=== PATIENT | female | born 1980 | race Caucasian/White ===

== ENCOUNTER 2018-08-11 00:16 | Emergency (ER) | payer SELFPAY ==
[2018-08-11 00:36] VITALS: BP 152/96; PULSE 80; RESP 16; TEMP 98.2; O2SAT 99
--- NOTE | 2018-08-11 03:00 | ED PDOC ---
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 Patient reports of developing left sided headache at 9:30 PM that spontaneously resolved. Patient is concerned because headache was associated with numbness to the left side of the head. Patient denies vision changes, extremity weakness and numbness, gait instability, nausea and vomiting. PMD: Gabi Ash Past Medical History Reviewed: Historical Data, Nursing Documentation, Vital Signs Vital Signs: Last Vital Signs Temp 98.2 F 08/11/18 00:34 Pulse 80 08/11/18 00:34 Resp 16 08/11/18 00:34 BP 152/96 H 08/11/18 00:34 Pulse Ox 99 08/11/18 00:34 Primary Care Provider: FAMILY PROVIDER,NO - Medical History PMH: No Chronic Diseases - Surgical History Surgical History: No Surg Hx - Family History Family History: States: Unknown Family Hx - Home Medications Home Medications: Ambulatory Orders Medication Instructions Recorded Docusate [Colace] 100 mg PO BID PRN #60 cap 07/29/15 Ferrous Sulfate [Feosol] 325 mg PO DAILY #30 tab 07/29/15 Ibuprofen [Motrin] 600 mg PO Q6H PRN #40 tab 07/29/15 Aspirin/Acetaminophen/Caffeine 1 each PO Q8 PRN #30 tablet 08/11/18 [Excedrin Migraine Geltab] - Allergies Allergies/Adverse Reactions: Allergies Allergy/AdvReac Type Severity Reaction Status Date / Time No Known Allergies Allergy Verified 08/11/18 00:34 Review of Systems ROS Statement: Except As Marked, All Systems Reviewed And Found Negative Eyes: Negative for: Vision Change Gastrointestinal: Negative for: Nausea, Vomiting Neurological: Positive for: Numbness, Headache. Negative for: Weakness, Incoordination Physical Exam - Reviewed Nursing Documentation Reviewed: Yes Vital Signs Reviewed: Yes - Physical Exam Appears: Positive for: No Acute Distress Head Exam: Positive for: ATRAUMATIC, NORMOCEPHALIC Skin: Positive for: Normal Color, Warm, Dry Eye Exam: Positive for: Normal appearance, EOMI, PERRL ENT: Positive for: Normal ENT Inspection Neck: Positive for: Normal, Painless ROM, Supple Cardiovascular/Chest: Positive for: Regular Rate, Rhythm. Negative for: Murmur Respiratory: Positive for: Normal Breath Sounds. Negative for: Respiratory Distress Gastrointestinal/Abdominal: Positive for: Normal Exam, Soft. Negative for: Tenderness Back: Positive for: Normal Inspection. Negative for: L CVA Tenderness, R CVA Tenderness, Vertebral Tenderness Extremity: Positive for: Normal ROM. Negative for: Deformity Neurological/Psych: Positive for: Awake, Alert, Oriented (x3), Gait (steady), Cerebellar Tests (normal), lamination operator II-XII (intact). Negative for: Motor/Sensory Deficits - ECG O2 Sat by Pulse Oximetry: 99 Medical Decision Making Medical Decision Making: Time: 112 A/P: 37 y/o female presenting with possibly atypical migraine. -- Will obtain Head CT to rule out acute intracranial process. -- Patient currently denies headaches. Thus, no medications needed. -- Patient likely seeking reassurance. -- CT Head w/o Contrast Time: 330 CT SCAN OF THE BRAIN WITHOUT IV CONTRAST CLINICAL INDICATION: Left-sided numbness. TECHNIQUE: Axial and reformatted sagittal and coronal images of the brain obtained without IV contrast administration. Normal size of the ventricles and extra-axial spaces for the patient's age. Normal white matter tracts of the supratentorial brain. Normal basal ganglia and thalami. Normal brainstem. Normal cerebellum. There is no demonstrated extra-axial, intraparenchymal, or intraventricular hemorrhage. There are no findings of an acute ischemic infarction. Normal calvarium. There is no demonstrated fracture. Normal soft tissue structures. Normal visualized paranasal sinuses. IMPRESSION: Normal unenhanced CT scan of the brain. Electronically signed on August 11, 2018 3:31:21 AM EDT by: Heraclio Betancourt M.D., Certified by FRANCISCO WATKINS, Neuroradiology Time: 339 -- Discussed findings with patient. Patient is stable upon discharge home. Return parameters discussed. Scribe Attestation: Documented by Lizandro Lewis, acting as a scribe Krista Rodriguez MD. Provider Scribe Attestation: All medical record entries made by the Scribe were at my direction and personally dictated by me. I have reviewed the chart and agree that the record accurately reflects my personal performance of the history, physical exam, medical decision making, and the department course for this patient. I have also personally directed, reviewed, and agree with the discharge instructions and disposition. Disposition - Clinical Impression Clinical Impression: Headache - Patient ED Disposition Is Patient to be Admitted: No Counseled Patient/Family Regarding: Studies Performed, Diagnosis, Need For Followup - Disposition Referrals: Israel Barksdale MD [Medical Doctor] - Disposition: Routine/Home Disposition Time: 03:40 Condition: STABLE Prescriptions: Aspirin/Acetaminophen/Caffeine [Excedrin Migraine Geltab] 1 each PO Q8 PRN #30 tablet PRN Reason: Pain, Moderate (4-7) Instructions: Headache, Adult Forms: [facility] (Polish) Print Language: SOUTH AFRICAN
--- NOTE | 2018-08-11 11:28 | CT ---
Date of service: 08/11/2018 PROCEDURE: CT HEAD WITHOUT CONTRAST. HISTORY: numbness to L side of head COMPARISON: None available. TECHNIQUE: Axial computed tomography images were obtained through the head/brain without intravenous contrast. Radiation dose: Total exam DLP = 691.62 mGy-cm. This CT exam was performed using one or more of the following dose reduction techniques: Automated exposure control, adjustment of the mA and/or kV according to patient size, and/or use of iterative reconstruction technique. FINDINGS: HEMORRHAGE: No intracranial hemorrhage. BRAIN: Normal stratton-white matter differentiation and density are appreciated throughout the cerebrum and cerebellum with the brainstem appearing unremarkable as well. There is no mass effect. There is no suspicious extra-axial fluid collection and the midline brain anatomy appears diffusely unremarkable. VENTRICLES: Unremarkable. No hydrocephalus. CALVARIUM: Unremarkable. PARANASAL SINUSES: Unremarkable as visualized. No significant inflammatory changes. MASTOID AIR CELLS: Unremarkable as visualized. No inflammatory changes. OTHER FINDINGS: None. IMPRESSION: Unremarkable unenhanced CT of the Head. Concordant preliminary report from [place], 08/11/2018, 3:31 a.m..
== END 2018-08-11 04:59 | disposition home or self-care (01) ==
LOC: H.ER 00:16
DX: R51 Headache (principal)